=== PATIENT | male | born 1995 | race Caucasian/White ===

== ENCOUNTER 2020-01-23 11:09 | Emergency (ER) | payer SELFPAY ==
[2020-01-23] MEDS ORDERED: predniSONE 20 MG TAB ONE (11:33)
[2020-01-23] MEDS ORDERED: Ventolin HFA Inhaler 60 PUFF INHALER ONE (11:33)
--- NOTE | 2020-01-23 12:17 | RAD ---
Exam: Chest one view HISTORY:Dyspnea Comparison: None FINDINGS: Cardiac silhouette: Normal Aorta: Unremarkable Pulmonary vessels: Normal Costophrenic angles: Clear LUNGS: No masses or consolidation. Pneumothorax: None Osseous abnormalities: None IMPRESSION: No acute cardiopulmonary process.
== END 2020-01-23 12:24 | disposition home or self-care (01) ==
LOC: MADERS 11:09
DX: J45.901 Unspecified asthma with (acute) exacerbation (principal)
CPT/HCPCS: 71045; J7512